=== PATIENT | male | born 1965 | race Caucasian/White ===

== ENCOUNTER 2016-12-25 15:54 | Emergency (ER) | payer BC ==
[~2016-12-25] VITALS: Ht 190.5 cm; Wt 115.3 kg
[2016-12-25 15:59] VITALS: BP 182/71
[2016-12-25] MEDS ORDERED: PREDNISONE50 MG PO (17:58)
[2016-12-25] MEDS ORDERED: NORCO 5/3251 TABLET PO (17:58)
== END 2016-12-25 18:11 | disposition home or self-care (01) ==
LOC: EME 15:54
DX: M54.12 Radiculopathy, cervical region (principal); Z87.891 Personal history of nicotine dependence
CPT/HCPCS: 99281; 99284; J7512